=== PATIENT | male | born 1980 | race Caucasian/White ===

== ENCOUNTER 2024-01-25 17:51 | Emergency (ER) | payer MEDICAID ==
[~2024-01-25] VITALS: Ht 175.3 cm; Wt 95.5 kg
[2024-01-25 18:05] VITALS: BP 113/83; PULSE 101; RESP 18; TEMP 98.5; O2SAT 98
== END 2024-01-25 19:21 | disposition home or self-care (01) ==
LOC: ER 17:51
DX: S42.002A Fracture of unspecified part of left clavicle, initial encounter for closed fracture (principal); Z91.199 Patient's noncompliance with other medical treatment and regimen due to unspecified reason; X58.XXXA Exposure to other specified factors, initial encounter; Y93.89 Activity, other specified; Y92.89 Other specified places as the place of occurrence of the external cause; Y99.8 Other external cause status
CPT/HCPCS: 73030; 99283